=== PATIENT | female | born 1960 | race Caucasian/White ===

== ENCOUNTER 2022-01-21 16:03 | Outpatient (REF) | payer BC, SELFPAY ==
--- NOTE | ~2022-01-21 | MM_ITS ---
EXAMINATION: MM SCREENING DIGITAL BREAST TOMOSYNTHESIS, BILATERAL CLINICAL INFORMATION: Screening. Asymptomatic. The lifetime risk of breast cancer based on the Tyrer-Cuzick Model is 7%. COMPARISON: Mammography: 04/09/2020, 11/12/2018, 10/06/2017 TECHNIQUE: Digital breast tomosynthesis is performed in both the craniocaudal and mediolateral oblique views along with computer-aided detection (CAD). Synthesized 2D images are generated from the tomosynthesis. FINDINGS: There are scattered areas of fibroglandular density (ACR BI-RADS breast composition Category b). There are no significant masses, abnormal calcifications, or other abnormalities. Parenchymal pattern is similar to prior studies and there is no developing density or architectural abnormality. The axilla and skin contours are unremarkable. No significant changes. MM/MM tomosynthesis screening BI IMPRESSION: No mammographic evidence of malignancy. ASSESSMENT: BI-RADS 2: Benign RECOMMENDATION: Routine annual mammography screening. This patient's information was entered into a reminder system with a target due date for their next mammogram.
== END 2022-01-21 16:04 | disposition home or self-care (01) ==
LOC: HO.MAMMO 16:03
PROVIDERS: PCP Nurse Practitioner Family; Visit Provider Nurse Practitioner Family
DX: Z12.31 Encounter for screening mammogram for malignant neoplasm of breast (principal)
CPT/HCPCS: 77063; 77067

== ENCOUNTER 2023-02-05 14:49 | Outpatient (REF) | payer BC, SELFPAY ==
--- NOTE | ~2023-02-05 | MM_ITS ---
EXAMINATION: MM SCREENING DIGITAL BREAST TOMOSYNTHESIS, BILATERAL CLINICAL INFORMATION: Screening. Asymptomatic. The lifetime risk of breast cancer based on the Tyrer-Cuzick Model is 8%. COMPARISON: Mammography: 01/21/2022, 04/09/2020, 11/12/2018 TECHNIQUE: Digital breast tomosynthesis is performed in both the craniocaudal and mediolateral oblique views along with computer-aided detection (CAD). Synthesized 2D images are generated from the tomosynthesis. FINDINGS: There are scattered areas of fibroglandular density (ACR BI-RADS breast composition Category b). Parenchymal pattern is similar to prior exams and there is no developing density or interval architectural abnormality. No significant mass. Minor smooth bilateral nodularity are stable. No abnormal calcifications. The axilla and skin contours are unremarkable. No significant changes from prior studies. MM/MM tomosynthesis screening BI IMPRESSION: No mammographic evidence of malignancy. ASSESSMENT: BI-RADS 2: Benign RECOMMENDATION: Routine annual mammography screening. This patient's information was entered into a reminder system with a target due date for their next mammogram.
== END 2023-02-05 14:50 | disposition home or self-care (01) ==
LOC: HO.MAMMO 14:49
PROVIDERS: PCP Nurse Practitioner Family; Visit Provider Nurse Practitioner Family
DX: Z12.31 Encounter for screening mammogram for malignant neoplasm of breast (principal)
CPT/HCPCS: 77063; 77067

== ENCOUNTER 2024-02-11 09:48 | Outpatient (REF) | payer BC, SELFPAY ==
--- NOTE | ~2024-02-11 | MM_ITS ---
EXAMINATION: MM SCREENING DIGITAL BREAST TOMOSYNTHESIS, BILATERAL CLINICAL INFORMATION: Screening. Asymptomatic. COMPARISON: Mammography: This study is compared with prior exams dating back to 2019. TECHNIQUE: Digital breast tomosynthesis is performed in both the craniocaudal and mediolateral oblique views along with computer-aided detection (CAD). Synthesized 2D images are generated from the tomosynthesis. FINDINGS: There are scattered areas of fibroglandular density (ACR BI-RADS breast composition Category b). There are no significant masses, abnormal calcifications, or other abnormalities. There is mild architectural change in the upper inner quadrant of the left breast from prior surgery for benign disease. MM/MM tomosynthesis screening BI IMPRESSION: No mammographic evidence of malignancy. ASSESSMENT: BI-RADS BI-RADS 2 - Benign Findings RECOMMENDATION: Routine annual mammography screening. 1 year F/U This examination should not preclude the clinical evaluation of a suspicious palpable abnormality. This patient's information was entered into a reminder system with a target due date for their next mammogram.
== END 2024-02-11 09:49 | disposition home or self-care (01) ==
LOC: HO.MAMMO 09:48
PROVIDERS: Visit Provider Nurse Practitioner Family
DX: Z12.31 Encounter for screening mammogram for malignant neoplasm of breast (principal)
CPT/HCPCS: 77063; 77067

== ENCOUNTER → 2024-02-11 10:00 | Outpatient (BNV) | payer BC, SELFPAY | PROVIDERS: Visit Provider Radiology Diagnostic Radiology | DX: Z12.31 Encounter for screening mammogram for malignant neoplasm of breast (principal) | CPT/HCPCS: 77063; 77067 ==

== ENCOUNTER 2025-02-23 09:51 | Outpatient (REF) | payer BC, SELFPAY ==
--- OUTSIDE RECORDS SUMMARY | 2025-02-23 11:15 | XMS_ITS | Encounter Summary ---
Author Organization [employer] Address [address] [place] [address] Care Team Providers Care Early Childhood Education Instructor Name Role Phone Alisson Bustillo Primary Care Provider Unavailable Morena Garcia Unavailable Unavailable Encounter Details Date Type Department Care Team (Late st Contact Info) Description 03/12/2024 Orders Only [facility] [address] [place] [address] Alisson Bustillo FNP Social History Tobacco Use Types Packs/Day Years Used Date Smoking Tobacco: Never Smokeless Tobacco: Never Alcohol Use Standard Drinks/Week Comments Yes 0 (1 standard drink = 0.6 oz pur e alcohol) socially Alcohol Answer Date Recorded How often do you have a drink containing alcohol ? 0 09/30/2023 How many drinks containing a lcohol do you have on a typical day when you are drinking? 0 09/30/2023 How often do you have six or more drinks on one occasion? 0 09/30/2023 Housing Stability Answer Date Recorded What is your housing situation today? I have monika emmanuel 03/14/[address] you li ve. Do you have problems with any of the following? Not on file 03/14/2024 Food Insecurity Answer Date Recorded Within the past 12 months, y ou worried that your food would run out before you got money to buy more: Never True 03/14/2024 Within the past 12 months,th e food you bought just didn't last and you didn't have enough money to get more: Never True Transportation Answer Date Recorded In the past 12 months, has l ack of transportation kept you from medical appts, meetings, work or from getting things needed for daily living? No 03/14/2024 Intimate Partner Violence Answer Date R ecorded Within the last year, have y ou been afraid of your partner or ex-partner? 2 09/30/2023 Within the last year, have y ou been humiliated or emotionally abused in other ways by your partner or ex-partner? 2 Within the last year, have y ou been kicked, hit, slapped, or otherwise physically hurt by your partner or ex-partner? 2 09/30/2023 Within the last year, have y ou been raped or forced to have any kind of sexual activity by your partner or ex-partner? 2 09/30/2023 Utilities Answer Date Recorded In the past 12 months, has t he electric, gas, oil or water company threatened to shut off services in your home? No 03/14/2024 Depression Answer Date Recorded Patient Health Questionnaire-2 Score 1 03/14/2024 Education Answer Date Recorded What is the highest level of school you have completed or the highest degree you have received? Bachelor's degree (e.g., BA, AB, BS) 03/11/2023 Comments Unknown Sex and Gender Information Value Date Recorded Sex Assigned at Female 01/08/2023 3:00 PM EDT Legal Sex Female 8:34 PM EDT Gender Identity Female 01/08/2023 3:00 PM EDT Sexual Orientation Straight 01/08/2023 3: 00 PM EDT Occupation Industry Job Start Date Job End Date retired Not on file Not on file Not on file documented as of this encounter Functional Status * Over the past 2 weeks, how often have you been bothered by any of the following problems? Question Answer Date of Assessment Author Little interest or pleasure in doing things Several days 03/14/2024 9:29 AM ELIZABETHT Lindsay Graves C MA Feeling down, depressed, or hopeless Not at all 03/14/2024 9:29 AM ELIZABETHT Lindsay Graves C MA Patient Health Questionnaire-2 Score 1 03/14/2024 9:29 AM EDT Lindsay Graves CMA * If you checked off any problems on this questionnaire so far, Question Answer Date of Assessment Author How difficult have these problems made it for you to do your work, take care of things at home, or get along with other people? Not difficult at all 03/14/2024 9:29 AM EDT Lindsay Graves CMA documented as of this encounter Plan of Treatment Not on file documented as of this encounter Procedures Procedure Name Priority Date/Time Associated Diagnosis Comments BI MAMMOGRAM SCREENING TOMOSYNTHESIS BILATERAL Routine 02/11/2024 11:40 AM EDT documented in this encounter Results * BI Mammogram Screening Tomosynthesis Bilateral (02/11/2024 11:40 AM EDT) Anatomical Region Laterality Modality Breast Bilateral Mammography Alisson MURPHY IMG BI PROCEDURES Karen l Result documented in this encounter Visit Diagnoses Not on filedocumented in this encounter Care Teams Early Childhood Education Instructor Relationship Specialty Start Date End Date Alisson Bustillo FNP PCP - General Family Medicine 11/26/22 Morena Garcia Community Health Worker 01/05/23 documented as of this encounter
== END 2025-02-23 09:52 | disposition home or self-care (01) ==
LOC: HO.MAMMO 09:51
PROVIDERS: PCP Nurse Practitioner Family; Visit Provider Nurse Practitioner Family
DX: Z12.31 Encounter for screening mammogram for malignant neoplasm of breast (principal)
CPT/HCPCS: 77063; 77067

== ENCOUNTER → 2025-02-23 10:00 | Outpatient (BNV) | payer BC, SELFPAY | PROVIDERS: PCP Nurse Practitioner Family; Visit Provider Internal Medicine | DX: Z12.31 Encounter for screening mammogram for malignant neoplasm of breast (principal) | CPT/HCPCS: 77063; 77067 ==

== ENCOUNTER 2025-05-02 13:00 | Outpatient (REF) | payer MEDICARE, SELFPAY ==
--- NOTE | ~2025-05-02 | MM_ITS ---
EXAMINATION (S): MM DIAGNOSTIC DIGITAL BREAST TOMOSYNTHESIS, RIGHT CLINICAL INFORMATION: Callback from screening for right asymmetry in the superior breast posterior depth on the MLO view. COMPARISON: Comparison made to multiple prior, most recent February 23, 2025, and most remote July 06, 2015. TECHNIQUE: Digital breast tomosynthesis is performed in Full field ML 90 degrees along with computer-aided detection (CAD). Synthesized 2D images are generated from the tomosynthesis. Spot compression tomosynthesis images were also obtained. FINDINGS: BREAST COMPOSITION: There are scattered areas of fibroglandular density (ACR BI-RADS breast composition Category b). RIGHT BREAST: Previously suggested asymmetry in the upper breast presses out with spot compression. Small intramammary lymph node at this location is essentially unchanged from prior studies as far back as 2015. MM/MM tomosynthesis added views R IMPRESSION: RIGHT BREAST: Benign, no mammographic evidence of malignancy. Normal interval follow-up is recommended in 12 months. ASSESSMENT: BI-RADS 2 - Benign Findings RECOMMENDATION: 1 year F/U Results were provided to the patient at time of visit by the technologist. This patient's information was entered into a reminder system with a target due date for their next mammogram. Electronically signed by: Daniel Browne MD 05/02/2025 06:03 PM EDT
--- OUTSIDE RECORDS SUMMARY | 2025-05-02 14:20 | XMS_ITS | Encounter Summary ---
Author Organization [employer] Address [address] [place] [address] Care Team Providers Care Epidemiology Internship Name Role Phone Alisson Bustillo Primary Care Provider Unavailable Morena Garcia Unavailable Unavailable Encounter Details Date Type Department Care Team (Late st Contact Info) Description 03/12/2024 Orders Only [facility] [address] [place] [address] Alisson Bustillo FNP Social History Tobacco Use [...] on filedocumented in this encounter Care Teams Epidemiology Internship Relationship Specialty Start Date End Date Alisson Bustillo FNP PCP - General Family Medicine 11/26/22 Morena Garcia Community Health Worker 01/05/23 documented as of this encounter
--- OUTSIDE RECORDS SUMMARY | 2025-05-02 14:20 | XMS_ITS | Clinical Summary ---
Author Organization [employer] Address [address] [place] [address] [address] [place] [address] Care Team Providers Care Paint Roller Covermaker Name Role Phone Alisson Bustillo Primary Care Provider Unavailable Morena Garcia Unavailable Unavailable Allergies No known active allergies Medications lisinopril-hydroC HLOROthiazide 20-12.5 MG tablet TAKE 1 TABLET BY MOUTH EVERY DAY IN THE MORNING 90 tablet 1 5 Active metoprolol succinate XL (Toprol-XL) 50 MG 24 hr tabletIndications :Benign essential hypertension TAKE 1 TABLET BY MOUTH DAILY. DO NOT CRUSH OR CHEW 90 tablet 5 Active gabapentin (Neurontin) 300 MG capsuleIndication s:Sleep disturbances Take 2 capsules (600 mg) by mouth at bedtime. 180 capsule 1 5 Active Active Problems Problem Noted Date Diagnosed Date Atrial fibrillation 03/12/2025 Diverticulosis 03/12/2025 Hypertension 03/12/2025 Migraine 03/12/2025 Prediabetes 03/12/2025 Raynaud disease 03/12/2025 Stress incontinence 03/14/2024 Overview (03/14/2024): - Consider pelvic floor physical therapy for stress incontinence. Dermatitis 02/01/2024 Assessment & Plan (02/01/2024 5:47 PM EDT): No evidence of infection and has been improving on its own. Suspect moisture-associated dermatitis vs vascular dermatitis, though favor the former. Recommend OTC hydrocortisone cream 2-3 times a day as needed until it resolves. RTC if worse or if failing to improve. Sleep disturbances 03/13/2023 Assessment & Plan (03/13/2023 10:24 AM EDT): 1. Sleep Hygiene: ? Establish a consistent sleep schedule by going to bed and waking up at the same time every day, even on weekends. ? Create a relaxing bedtime routine to signal the body that it's time to sleep. This can include activities such as reading, taking a warm bath, or practicing relaxation techniques. ? Make the sleep environment comfortable, cool, dark, and quiet. Consider using earplugs, eye shades, or a white noise machine if necessary. ? Avoid stimulating activities close to bedtime, such as using electronic devices (phones, tablets, computers) or engaging in intense physical exercise. 2. Addressing Insomnia: ? Avoid napping during the day, as it can interfere with nighttime sleep. ? Limit or avoid caffeine intake, especially in the afternoon and evening. ? Engage in regular physical activity during the day, but avoid intense exercise close to bedtime. ? Implement stress-reduction techniques, such as meditation, deep breathing exercises, or journaling, to help relax the mind before sleep. ? If insomnia persists or becomes chronic, consider discussing it with a healthcare professional for further evaluation and possible treatment options. Overweight with body mass in dex (BMI) of 28 to 28.9 in adult 03/13/2023 Assessment & Plan (03/13/2023 10:24 AM EDT): Recommend incorporating a variety of fruits, vegetables, whole grains, lean proteins, and healthy fats into your diet. It's important to limit consumption of processed foods, added sugars, and unhealthy fats. By making small but sustainable changes to your diet, you can improve your overall health and reduce the risk of chronic disease. I encourage you to keep a food diary to track your intake and identify areas for improvement. Additionally, focusing on portion sizes, mindful eating, and overcoming barriers to healthy eating can help you achieve your dietary goals. Incorporating both aerobic and strength-training exercises into your routine can help you burn calories, build muscle, and improve cardiovascular health. Aim for at least 150 minutes of moderate-intensity aerobic exercise per week, such as brisk walking or cycling, and two days of strength-training exercises targeting major muscle groups. It's important to find an exercise routine that you enjoy and can stick with long-term. Start slowly and gradually increase intensity and duration over time. Additionally, incorporating physical activity into your daily routine, such as taking the stairs instead of the elevator or walking instead of driving for short trips, can help increase overall activity levels. Benign essential hypertension 08/18/2017 Overview (02/01/2024): Blood pressure today 120/76. She is on lisinopril-hydrochlorothiazide 20-12.5 mg tablet daily as well as metoprolol 50 mg daily. She is encouraged to follow heart healthy diet including low sodium. She did have labs checked at [facility] which I will request to review. She was also encouraged to start increasing her exercise as she is not doing this is much as she should. Assessment & Plan (02/01/2024 5:42 PM EDT): Discussed today's elevated BP. Given marked elevation, I suggested increasing antihypertensive regimen. Patient would prefer to wait until she sees PCP for her physical next month. Patient agreed to check BP at home and keep a log for PCP to review at that visit. Resolved Problems Problem Noted Date Diagnosed Date Resolved Date Cough with fever 09/30/2023 03/12/2025 Assessment & Plan (09/30/2023 3:33 PM EST): Started not feeling well Thursday but Thursday started with fevers and nasal congestion. Tmax 102.1. Has been continuing with very low grade fevers, 99-100.1. Has been taking Coricidin HP with good effect (does have Tylenol in it). She states she also has clear nasal congestion with a dry non productive cough. Sore throat only when coughing a lot. Cough is worse at night/blowing her nose. She is eating and drinking ok, states she is drinking enough but states she is feeling thirsty. Flu and Covid negative. Discussed soft foods, increased water intake. Discussed tea with honey is she would tolerate it.. Discussed throat lozenges, Tylenol for pain. Also continue with Coricidin HBP for cold symptoms. Humidifier by bed at night. Warm salt gargles. Nasal sinus spray and Flonase for sinus congestion. Discussed this is likely viral and she should start feeling better in a few days but some of the viruses have lingered 10-14d. Follow up in 1w if symptoms not better. Discussed red flag s/s to go to the ER including high fevers not resolving with Tylenol, diff swallowing, CP, diff breathing. Encounters Date Type Department Care Team Description 03/16/2025 2:00 PM EDT Office Visit [facility] [address] [place] [address] Regine Novak CNP Health maintenance examination (Primary Dx); Benign essential hypertension; Prediabetes; Sleep disturbances; Slow transit constipation 03/12/2025 Travel 03/12/2025 Orders Only [facility] [address] [place], [place] [phone] Pcp, [place] Unassigned 02/28/[address] [facility] [address] [place], [place] [phone] Vanessa White MD Benign essential hypertension 02/10/[address] [facility] [address] [place], [place] [phone] Alisson Bustillo FNP Benign essential hypertension from Last 3 Months Immunizations Immunization Administration Dates Next Due Influenza, IIV3, injectable 06/07/2020 Influenza, Split (incl. chemo fied surface antigen) 07/16/2010,07/10/2009 Influenza, Unspecified 09/15/2013,10/16/2011, Moderna Covid-19 Vaccine 12+ 08/08/2021,12/15/19 21,11/16/2020 TD (adult), 2 Lf tetanus tox oid, preservative free, adsorbed 12/31/2020,03/17/2003 Tdap 01/31/2010 Varicella 07/18/1963 Family History Medical History Relation Name Comments Diabetes Father Horace B Khan Hypertension Father Horace B Khan Stroke Father Horace B Khan Hypertension Mother Bennie Khan Miscarriages / Stillbirths Sister 1 Carieradha Capone y Miscarriages / Stillbirths Sister 2 Carieradha Borreroh y Relation Name Status Comments Father Horace B Khan Alive Mother Bennie Robbins Khan Alive Sister 1 Carie Somers Alive Sister 2 Carie Somers Alive Social History Tobacco Use Types Packs/Day Years Used Date Smoking Tobacco: Never Smokeless Tobacco: Never Tobacco Cessation:Counseling Given: Not Answered Alcohol Use Standard Drinks/Week Comments Yes 1 (1 standard drink = 0.6 oz pur e alcohol) Only socially Alcohol Answer Date Recorded How often do you have a drink containing alcohol ? 1 03/16/2025 How many drinks containing a lcohol do you have on a typical day when you are drinking? 0 03/16/2025 How often do you have six or more drinks on one occasion? 0 03/16/2025 Depression Answer Date Recorded Patient Health Questionnaire-9 Score 4 03/16/2025 Patient Health Questionnaire-9 Score 4 03/16/2025 Last PHQ-9: Questionnaire Data Not on file 0 03/16/2025 Housing Stability Answer Date Recorded What is your housing situation today? I have monikarenee emmanuel 03/16/[address] you li ve. Do you have problems with any of the following? None of the above 03/16/2025 Food Insecurity Answer Date Recorded Within the [...] Answer Date Recorded Patient Health Questionnaire-2 Score 0 03/16/2025 Internet Access Answer Date Recorded Internet Access Q1 Yes 05/01/2024 Internet Access Q2 Not on file 05/01/2024 Education Answer Date Recorded What is the highest level of school you have completed or the highest degree you have received? Bachelor's degree (e.g., BA, AB, BS) 03/11/2023 Comments No Sex and Gender Information Value Date Recorded Sex Assigned at Female 01/08/2023 3:00 PM EDT Legal Sex Female 8:34 PM EDT Gender Identity Female 01/08/2023 3:00 PM EDT Sexual Orientation Straight 01/08/2023 3: 00 PM EDT Occupation Industry Job Start Date Job End Date retired Not on file Not on file Not on file Last Filed Vital Signs Vital Sign Reading Time Taken Comments Blood Pressure 138/62 03/16/2025 2:04 PM EDT Pulse 65 03/16/2025 2:04 PM EDT Temperature 36.6 C (97.8 F) 03/16/2025 2:04 PM EDT Respiratory Rate 16 03/11/2023 4:00 PM EDT Oxygen Saturation 96% 03/16/2025 2:04 PM EDT Inhaled Oxygen Concentration - - Weight 74.8 kg (165 lb) 03/16/2025 2:04 PM EDT Height 166.4 cm (5' 5.5 ) 03/16/2025 2:04 PM EDT Body Mass Index 27.04 03/16/2025 2:04 PM EDT Plan of Treatment Health Maintenance Due Date Last Done Comments CT Colonography 1960 Diabetes: Hemoglobin A1C 1960 FIT DNA/Cologuard 1960 FIT 1960 FOBT 1960 Sigmoidoscopy 1960 Pneumococcal Vaccine: 50+ Years (1 of 1 - PCV) 2010 Zoster Vaccines (1 of 2) 2010 COVID-19 Vaccine (4 - season) 2025 08/08/2021, 12/14/2020, 11/16/2020 Influenza Vaccine (#1) 2025 , 09/15/2013, 10/16/2011, Additional history exists Cervical Cancer Screening 12/31/2025 HPV/Cotest 12/31/2025 Pap Smear 12/31/2025 12/31/2020 Mammogram 02/10/2026 02/11/2024, 12/30, 11/12/2018, Additional history exists Alcohol/Substance Use Screening 03/16/2026 03/16/2025 Depression Screening 03/16/2026 03/16/2025, 03/16/20 25 SDOH Screening 03/16/2026 03/16/2025 Tobacco Screening 03/16/2026 03/16/2025 Lipid Panel 04/06/2029 04/06/2024, 02/28, 01/01/2022, Additional history exists DTaP/Tdap/Td Vaccines (3 - Td or Tdap) 12/31/2030 12/31/2020, 01/31/2010, 03/17/2003 Colonoscopy 05/08/2032 05/08/2022 Colorectal Cancer Screening 05/08/2032 RSV Patients and Patients Aged 60 years or older (1 - 1-dose 75+ series) 2035 Hepatitis C Screening Completed 03/17/2023 HIB Vaccines Aged Out No longer eligi ble based on patient's age to complete this topic HPV Vaccines Aged Out No longer eligi ble based on patient's age to complete this topic Hepatitis A Vaccines Aged Out No long er eligible based on patient's age to complete this topic Hepatitis B Vaccines Aged Out No long er eligible based on patient's age to complete this topic IPV Vaccines Aged Out No longer eligi ble based on patient's age to complete this topic Meningococcal B Vaccine Aged Out No l onger eligible based on patient's age to complete this topic Meningococcal Vaccine Aged Out No mikhail lynnette eligible based on patient's age to complete this topic RSV under 20 months Aged Out No longe r eligible based on patient's age to complete this topic Rotavirus Vaccines Aged Out No longer eligible based on patient's age to complete this topic Procedures Procedure Name Priority Date/Time Associated Diagnosis Comments MM DIGITAL MAMMO BILATERAL Routine 02/23/2025 9:18 AM EDT LIPID PANEL, STANDARD Routine 04/06/2024 9:38 AM EDT Benign essential hypertension BI MAMMOGRAM SCREENING TOMOSYNTHESIS BILATERAL Routine 02/11/2024 11:40 AM EDT HEPATITIS C ANTIBODY W/RFLX HCV QUANT PCR AND GENOTYPE Routine 03/17/2023 9:25 AM EDT Screening for STDs (sexually transmitted diseases) COLONOSCOPY Routine 05/08/2022 12:00 AM EDT PAP SMEAR Routine 12/31/2020 12:00 AM EDT from Last 3 Months or Most Recently Relevant to Health Maintenance Results * MM DIGITAL MAMMO BILATERAL (02/23/2025 9:18 AM EDT) Anatomical Region Laterality Modality Mammography [facility] Unassigned Pcp IMG BI PROCEDURES Final Result * (ABNORMAL) Lipid Panel, Standard (04/06/2024 9:38 AM EDT) Cholesterol, Total 217(H) 100 - 199 mg/dL [facility] Triglycerides 72 0 - 149 mg/dL [facility] HDL Cholesterol 68 >39 mg/dL [facility] 1 VLDL Cholesterol José 13 5 - 40 mg/dL [facility] 1 LDL Chol Calc (NIH) 136(H) 0 - 99 mg/dL [facility] 1 Blood Venous blood specimen / Unknown 04/06/2024 9:38 AM EDT 04/06/2024 Narrative [facility] 1 - 04/07/2024 12:05 AM EDT Performed at: 01 - [facility] [address] [id number] Carbon Coating Machine Operator: Aline Olguin MD, Phone: [phone] Alisson Bustillo WINDER OPERATOR LAB BLOOD ORDERABLES F inal Result [facility] * BI Mammogram Screening Tomosynthesis Bilateral (02/11/2024 11:40 AM EDT) Anatomical Region Laterality Modality Breast Bilateral Mammography us Alisson Bustillo WINDER OPERATOR IMG BI PROCEDURES Karen l Result * Hepatits C Antibody w/Reflex HCV Quant PCR and Genotyping (03/17/2023 9:25 AM EDT) Hepatitis C Virus Ab, Serum NEGATIVE (NEG) [facility] Comment: Reference range: Negative This test was performed on the [employer] immunoassay system. Testing performed or reported by [facility], a Service of [facility], [facility] [address] Ja Ford MD, Brake Operator Heavy Duty [facility]# [id number] 03/17/2023 9:25 AM EDT 03/17/2023 9:27 AM EDT Alisson Bustillo [facility] LAB BLOOD ORDERABLES F inal Result [facility] [address] [place] [id number] * COLONOSCOPY: [facility] (05/08/2022 12:00 AM EDT) Anatomical Region Laterality Modality Endoscopy 05/08/2022 Narrative 05/08/2022 12:00 AM EDT Refer to [facility] for result details [facility] Procedure: COLONOSCOPY: [facility] Procedure Note Provider, Lizett, - 12/25/2022 Refer to [facility] for result details [facility] Procedure: COLONOSCOPY: [facility] Historical Provider ENDOSCOPY PROCEDURE ORDER SIRISHA Final Result * Pap Smear (12/31/2020 12:00 AM EDT) Swab Historical Provider LAB CYTOLOGY ORDERABLES F inal Result [facility] [address] [place] [address], [place] [phone] from Last 3 Months or Most Recently Relevant to Health Maintenance Insurance MEDICARE Member Subscriber Plan / Payer (Ef fective 2025-Present) Name:Sara Salehisidoro Saab Member ID:[id number] Relation to Subscriber:Self Name:Jenny Saleh Subscriber ID:[id number] Payer ID:[id number] Group ID:Not on file Type:Medicare Address: [facility] [address] [address] * Guarantor: Jenny Saleh Account Type Relation to Patient Date of Phone Billing Address Personal/Family Self [address] [place] Care Teams Paint Roller Covermaker Relationship Specialty Start Date End Date Alisson Bustillo FNP PCP - General Family Medicine 11/26/22 Morena Garcia Community Health Worker 01/05/23
--- OUTSIDE RECORDS SUMMARY | 2025-05-02 14:20 | XMS_ITS | Encounter Summary ---
Author Organization [employer] Address [address] [place] [address] Care Team Providers Care Carpet Layer Name Role Phone Alisson Bustillo Primary Care Provider Unavailable Morena Garcia Unavailable Unavailable Encounter Details Date Type Department Care Team (Late st Contact Info) Description 03/12/2025 Orders Only [facility] [address] [place] [address] PcpPaul Unassigned Social History Tobacco Use Types Packs/Day Years [...] your housing situation today? I have monika cholo 03/16/[address] you li [...] on file documented as of this encounter Plan of Treatment Not on file documented as of this encounter Procedures Procedure Name Priority Date/Time Associated Diagnosis Comments MM DIGITAL MAMMO BILATERAL Routine 02/23/2025 9:18 AM EDT documented in this encounter Results * MM DIGITAL MAMMO BILATERAL (02/23/2025 9:18 AM EDT) Anatomical Region [facility]ality [facility] IMG BI PROCEDURES Final Result documented in this encounter Visit Diagnoses Not on filedocumented in this encounter Care Teams Carpet Layer Relationship Specialty Start Date End Date Alisson Bustillo FNP PCP - General Family Medicine 11/26/22 Morena Garcia Community Health Worker 01/05/23 documented as of this encounter
--- OUTSIDE RECORDS SUMMARY | 2025-05-02 14:20 | XMS_ITS | Clinical Summary ---
Author Organization [facility] Address [address] [place] [id number] Phone Care Team Providers Care Steel Pourer Helper Name Role Phone Savi Dahl MD Unavailable [phone] Alisson García NP Primary Care Pr ovider Allergies No known active allergies Medications metoprolol succinate (TOPROL-XL) 50 MG 24 hr tablet Take 50 mg by mouth daily. Active gabapentin (NEURONTIN) 300 MG capsule Take 600 mg by mouth daily. 02/28/2022 Active b complex vitamins capsule Take 1 capsule by mouth daily. Active cholecalciferol (VITAMIN D3) 25 MCG (1,000 unit) tablet Take 1,000 Units by mouth daily. Active lisinopril-hydr oCHLOROthiazide (PRINZIDE,ZESTO RETIC) 20-12.5 mg per tabletIndicatio ns:Medication refill TAKE 1 TABLET BY MOUTH EVERY DAY 90 tablet 3 06/26/2023 Active Active Problems Problem Noted Date Diagnosed Date Dyspnea on exertion 10/04/2019 Assessment & Plan (03/12/2022 7:49 AM EDT): Asymptomatic at this time. Assessment & Plan (08/21/2020 4:06 PM EST): Improved. More active. Assessment & Plan (11/18/2019 8:15 AM EDT): Reassuring stress echo, dyspnea on exertion not likely related to cardiovascular or structural heart disease. Assessment & Plan (10/05/2019 5:42 AM EST): Dyspnea on exertion with stair climbing, new onset of heart rate elevation with activity, 2 episodes of heartburn /chest discomfort in a 59 year old female. Past medical history of hypertension. Will pursue with stress echo to rule out cardiovascular and structural heart disease and 24 hour holter to check for presence of atrial fibrillation and other dysrhythmias. I asked patient to hold her metoprolol for 48 hours prior her stress test. Benign essential hypertension 08/18/2017 Assessment & Plan (03/12/2022 7:49 AM EDT): Blood pressure today 120/76. She is on lisinopril-hydrochlorothiazide 20-12.5 mg tablet daily as well as metoprolol 50 mg daily. She is encouraged to follow heart healthy diet including low sodium. She did have labs checked at [facility] which I will request to review. She was also encouraged to start increasing her exercise as she is not doing this is much as she should. Assessment & Plan (08/21/2020 4:06 PM EST): Controlled on present therapy. No changes. Needs a metabolic profile. Assessment & Plan (11/18/2019 8:14 AM EDT): Pressure slightly elevated, and attributes this to having an office visit and review of results .BP goal is less then 130/80. She is knowledgeable about DASH, stress reduction and importance of exercise in BP management. She will call the office if she continues with blood pressure readings consistently above goal. Assessment & Plan (10/05/2019 5:32 AM EST): Normotensive today, has not switched to losartan/HCTZ yet. BP goal is less then 130/80. She is knowledgeable about DASH, stress reduction and importance of exercise in BP management. Assessment & Plan (08/17/2019 10:39 AM EST): I would have tried to switch her to a losartan 50 combined with HCTZ at 12.5. She will let me know if her blood pressure remains controlled and her cough dissipates. Her ECG today is benign with a heart rate of 61 in sinus rhythm and is a normal tracing. Assessment & Plan (08/18/2018 2:40 PM EST): Doing well. Blood pressure well maintained. I will have a metabolic profile drawn now and again in a year when she returns. Assessment & Plan (08/18/2017 2:42 PM EST): Doing well. Blood pressure well controlled. I've given her a lisinopril 20/Hydrochlorthiazide at 12.5 combination pill. Family History Medical History Relation Comments Diabetes mellitus Father 2 Hypertension Father 2 Stroke Father 2 Cancer Maternal Grandmother 2 Hypertension Mother 2 Relation Status Comments Father 1 Father 2 Maternal Grandmother 1 Maternal Grandmother 2 Mother 1 Mother 2 Social History Tobacco Use Types Packs/Day Years Used Date Smoking Tobacco: Never Smokeless Tobacco: Never Tobacco Cessation:Counseling Given: Not Answered Alcohol Use Standard Drinks/Week Comments Not Currently 0 (1 standard drink = 0.6 oz pur e alcohol) rarely Education Answer Date Recorded Are you interested in more education? Not on sid e 12/26/2022 Are you concerned about learning? Not on file 12/26/2022 No 12/26/2022 No 12/26/2022 Digital Access Answer Date Recorded No 01/24/2023 No 01/24/2023 Reliable internet access at home? Not on file 01/24/2023 Device with a working camera? Not on file Comments No Sex and Gender Information Value Date Recorded Sex Assigned at Not on file Legal Sex Female 9:48 PM EDT Gender Identity Not on file Sexual Orientation Not on file Last Filed Vital Signs Vital Sign Reading Time Taken Comments Blood Pressure 144/82 10/20/2024 7:38 AM EST Pulse 85 10/20/2024 7:38 AM EST Temperature 35.6 C (96.1 F) 05/08/2022 9:44 AM EDT Respiratory Rate 16 05/08/2022 9:54 AM EDT Oxygen Saturation 99% 10/20/2024 7:38 AM EST Inhaled Oxygen Concentration - - Weight 77.6 kg (171 lb) 10/20/2024 7:38 AM EST Height 167.6 cm (5' 5.98 ) 10/20/2024 7:38 AM ES T Body Mass Index 27.61 10/20/2024 7:38 AM EST Plan of Treatment Health Maintenance Due Date Last Done Comments DEPRESSION SCREENING 1972 HIV ONE-TIME SCREENING (18-6 5 YEARS) 1978 MAMMOGRAM 2000 COLOGUARD 2005 FIT TEST 2005 FOBT 2005 SIGMOIDOSCOPY 2005 VIRTUAL COLONOSCOPY 2005 PNEUMOCOCCAL VACCINES (50+ years) (1 of 1 - PCV) 2010 ZOSTER VACCINES (1 of 2) 2010 CREATININE LEVEL 08/18/2019 08/18/2018 POTASSIUM LEVEL 08/18/2019 08/18/2018 SCREENING FOR DIABETES 01/01/2025 , 08/18/2018 OSTEOPOROSIS SCREENING INITI AL (ONE-TIME) 2025 INFLUENZA VACCINE (#1) 2025 BLOOD PRESSURE 04/19/2025 10/20/2024 COVID-19 VACCINE (4 - 2024-2 6 season) 2025 08/08/2021, 12/14/2020, 11/16/2020 LIPID PANEL 04/06/2029 04/06/2024, 04/06/2024, 03/17/2023 Adult Td,Tdap Booster 12/31/2030 12/31/2020 , 01/31/2010 COLONOSCOPY 05/08/2032 05/08/2022 COLORECTAL CANCER SCREENING 05/08/2032 RSV VACCINE (1 - 1-dose 75+ series) 2035 HEPATITIS C SCREENING Completed 03/17/2023 SMOKING STATUS SCREENING (On ce After 26 Yrs) Completed 10/20/2024 HEPATITIS A VACCINES Aged Out No long er eligible based on patient's age to complete this topic HIB VACCINES Aged Out No longer eligi ble based on patient's age to complete this topic MENINGOCOCCAL VACCINES (ACWY) Aged Out No longer eligible based on patient's age to complete this topic MENINGOCOCCAL VACCINES (B) Aged Out N o longer eligible based on patient's age to complete this topic Medical Devices Not on file Procedures Procedure Name Priority Date/Time Associated Diagnosis Comments ENDOSCOPY, COLON 05/08/2022 9:18 AM EDT BASIC METABOLIC PANEL Routine 08/18/2018 2:54 PM EST Benign essential hypertension from Last 3 Months or Most Recently Relevant to Health Maintenance Results * ENDOSCOPY, COLON (05/08/2022 9:18 AM EDT) Narrative Transcriptions Giovanny French MD - 05/08/2022 9:18 AM EDT Patient Name: Jenny Saleh Attending MD:: GIOVANNY FRENCH MD Procedure Date: 05/08/2022 9:18 AM Date of : 1960 Age: 62 Admit Type: Outpatient Gender: Female Room: [place] [address] Referring MD: Alisson Zapata Exam Type: Colonoscopy Indications: Screening for colorectal malignant neoplasm, Last colonoscopy: March 2012 Medications: Monitored Anesthesia Care Procedure: Informed consent was obtained from the patientafter discussion of the indications, limitations, alternatives, benefits, and risks of the procedure. Risks specifically discussed include but are not limited to medication reactions, missed lesions, bleeding, perforation, or the need for emergent surgery. Throughout the procedure, the patient's blood pressure, pulse, end-tidal CO2, and oxygensaturations were monitored continuously. The Olympus adult variable colonoscope [id number] #5 was introduced through the anus and advanced to the terminal ileum, with identification of theappendiceal orifice and IC valve. The colonoscopy was performed without difficulty. The patient tolerated the procedure well. The quality of the bowelpreparation was excellent. The terminal ileum, ileocecal valve, appendiceal orifice, and rectum werephotographed. Complications: No immediate complications. Estimated blood loss:None. Findings: The terminal ileum appeared normal. Examination of the right colon was repeated in retroflexion and again in NBI. Retroflexion wasalso performed in the rectum. Multiple diverticula were found in the sigmoidcolon. A 2 mm hyperplastic appearing polyp was found inthe rectum. The polyp was sessile. The polyp wasremoved with a cold biopsy forceps. Resection and retrieval were complete. The exam was otherwise without abnormality. Impression: - The examined portion of the ileum was normal. - Diverticulosis in the sigmoid colon. - One 2 mm hyperplastic polyp in the rectum,removed with a cold biopsy forceps. Resected andretrieved. - The examination was otherwise normal. Recommendation: - Patient has a contact number available for emergencies. The signs and symptoms of potential delayed complications were discussed with thepatient. Return to normal activities tomorrow. Written discharge instructions were provided to thepatient. - Await pathology results. - Repeat colonoscopy in 10 years for screening purposes, assuming polyp is hyperplastic. Giovanny French GIOVANNY FRENCH MD 05/08/2022 9:42:17 AM This report has been signed electronically. Number of Addenda: 0 Note Initiated On: 05/08/2022 9:18 AM Procedure Code(s): --- Professional --- 34052, Colonoscopy, flexible; with biopsy, single or multiple --- Technical --- 21530, Colonoscopy, flexible; with biopsy, single or multiple CPT copyright 2020 [employer]. All rights reserved. The codes documented in this report are preliminary and upon sales representative printing supplies reviewmay be revised to meet current compliance requirements. Procedure Date: 05/08/2022 9:18:[address] [place] [id number] Alisson Abiodun Miguel Schon BOAT OUTFITTER GI PROCEDURE ORD ERABLES Final Result * (ABNORMAL) Basic metabolic panel (08/18/2018 2:54 PM EST) SODIUM 137 133 - 146 mmol/L [facility] CHLORIDE 96 96 - 108 mmol/L [facility] POTASSIUM 3.9 3.3 - 5.1 mmol/L [facility] CO2 31 21 - 35 mmol/L [facility] BUN 17 6 - 19 mg/dL [facility] CREATININE 0.50 0.5 - 1.5 mg/dL [facility] GLUCOSE 104(H) 70 - 99 mg/dL [facility] CALCIUM 9.6 8.4 - 10.3 mg/dL [facility] EGFR 107 >59 mL/min/1.7 3m2 [facility] Comment:If patient is black, multiply result by 1.159. Estimated glomerular filtration rate calculated using the CKD-EPI equation. ANION GAP 14 10 - 20 mmol/L [facility] Blood 08/18/2018 2:54 PM EST 08/18/2018 2:57 PM EST us Moses Gillette MD LAB BLOOD ORDERABLES Final Resu lt [facility] [address] [place] [address] from Last 3 Months or Most Recently Relevant to Health Maintenance [place] [address] [place] [address] [facility] [address] [place] [address] [place] [address] [facility] Care Teams Steel Pourer Helper Relationship Specialty Start Date End Date Alisson García NP [address] [place] [address] PCP - General Nurse Practitioner 10/20/24 Savi Dahl MD [address] [place] [address] [email or web address] Insurance Assigned Provider 12/05/23 Additional Source Comments The information contained in this document represents components of the legal health record. It is not the complete legal health record.[facility]
--- OUTSIDE RECORDS SUMMARY | 2025-05-02 14:20 | XMS_ITS | Encounter Summary ---
Author Organization [facility] Address [address] [place] [phone] Phone Care Team Providers Care Agricultural Specialist Name Role Phone Savi Dahl MD Unavailable [phone] Alisson García NP Primary Care Pr ovider Alisson García CLOTH MEASURER Primary Care Pr ovider Encounter Details Date Type Department Care Team (Late st Contact Info) Description 05/08/2022 Procedure Pass [facility] Endoscopy Admitting Dept Virtual Department [address] [place] [address] [id number] Social History Tobacco Use Types Packs/Day Years Used Date Smoking Tobacco: Never Smokeless Tobacco: Never Alcohol Use Standard Drinks/Week Comments Not Currently 0 (1 standard drink = 0.6 oz pur e alcohol) rarely Comments No Sex and Gender Information Value Date Recorded Sex Assigned at Not on file Legal Sex Female 9:48 PM EDT Gender Identity Not on file Sexual Orientation Not on file documented as of this encounter Plan of Treatment Not on file documented as of this encounter Visit Diagnoses Not on filedocumented in this encounter Care Teams Agricultural Specialist Relationship Specialty Start Date End Date Alisson García NP [address] [place] [address] PCP - General Family Medicine 05/08/22 10/19/24 Alisson García NP [address] [place] [address] PCP - General Nurse Practitioner 10/20/24 Savi Dahl MD [address] [place] [phone] [email or web address] Insurance Assigned Provider 12/05/23 documented as of this encounter Additional Source Comments The information contained in this document represents components of the legal health record. It is not the complete legal health record.[facility]
== END 2025-05-02 13:01 | disposition home or self-care (01) ==
LOC: HO.MAMMO 13:00
PROVIDERS: PCP Internal Medicine; Visit Provider Nurse Practitioner Family
DX: R92.8 Other abnormal and inconclusive findings on diagnostic imaging of breast (principal)
CPT/HCPCS: 77061; 77065

== ENCOUNTER → 2025-05-02 13:00 | Outpatient (BNV) | payer MEDICARE, SELFPAY | PROVIDERS: PCP Internal Medicine; Visit Provider Radiology Body Imaging | DX: R92.8 Other abnormal and inconclusive findings on diagnostic imaging of breast (principal) | CPT/HCPCS: 77065; G0279 ==